=== PATIENT | female | born 1940 | race African-American/Black ===

== ENCOUNTER 2017-10-21 20:38 | Emergency (ER) | payer MEDICARE ==
[~2017-10-21] VITALS: Ht 157.5 cm; Wt 71.3 kg
[2017-10-21] MEDS ORDERED: OMEP20CA10 MT (22:55)
[2017-10-21] MEDS ORDERED: LEVO75TA MT (22:55)
[2017-10-21] MEDS ORDERED: LOSA50TA20 MT (22:55)
[2017-10-21] MEDS ORDERED: CELE100C97 MT (22:55)
[2017-10-21] MEDS ORDERED: VENL-179 MT (22:55)
[2017-10-22 00:19] LABS: CHLORIDE 106 mEq/L (98-107)
[2017-10-22 00:20] LABS: BASOPHILS % 0.5 % (0.0-2.0); EOSINOPHILS % 2.8 % (0.0-5.0); HEMATOCRIT. 40.5 % (36.0-48.0); HEMOGLOBIN. 13.8 g/dL (12.0-16.0); LYMPHOCYTES % 36.6 % (20.0-50.0); MEAN CORPUSCULAR HEMOGLOBIN 30.6 pg (28.0-32.0); MEAN CORPUSCULAR VOLUME 89.6 fL (81.0-99.0); MEAN PLATELET VOLUME 8.9 fl (7.4-10.4); MONOCYTES % 10.7 % (2.0-8.0); NEUTROPHILS % 49.4 % (40.0-76.0); PLATELET 216 x1000/uL (130-400); RED BLOOD CELL COUNT 4.52 mill/uL (4.2-5.4); RED CELL DISTRIBUTION WIDTH 12.8 % (11.6-14.6)
[2017-10-22 01:24] VITALS: BP 135/75
== END 2017-10-22 01:27 | disposition home or self-care (01) ==
LOC: ER 20:38
DX: N93.8 Other specified abnormal uterine and vaginal bleeding (principal); K21.9 Gastro-esophageal reflux disease without esophagitis; I10 Essential (primary) hypertension; E03.8 Other specified hypothyroidism; Z90.49 Acquired absence of other specified parts of digestive tract; Z90.710 Acquired absence of both cervix and uterus; Z79.899 Other long term (current) drug therapy
CPT/HCPCS: 36415; 80053; 85025; 86850; 86900; 99284

== ENCOUNTER 2021-09-25 15:37 | Emergency (ER) | payer MEDICARE ==
[~2021-09-25] VITALS: Ht 162.6 cm; Wt 81.0 kg
[~2021-09-25 15:37] MED LIST: CELE100C97 MT; LEVO75TA MT; LOSA50TA41 MT; OMEP20CA14 MT; VENL-179 MT
[2021-09-25] MEDS ORDERED: LIDOCAINE HCL 1% 20ML VIAL (Pyxis) INJ INFIL ONE (21:45)
[2021-09-25] MEDS ORDERED: TETANUS, DIPHTHERIA, PERTUSSIS VAC/PF 0.5ML (>10YR OLD) IM ONE (21:45)
[2021-09-25] MEDS ORDERED: AMOXICILLIN/POTASSIUM CLAVULANATE 875/125MG TAB PO NR (23:30)
[2021-09-25] MEDS ORDERED: AMOX1TAB16 MT (23:39)
[2021-09-26] VITALS: BP 132/70
== END 2021-09-26 | disposition home or self-care (01) ==
LOC: ER 15:37
DX: S62.634A Displaced fracture of distal phalanx of right ring finger, initial encounter for closed fracture (principal); X58.XXXA Exposure to other specified factors, initial encounter; Y93.89 Activity, other specified; Y92.89 Other specified places as the place of occurrence of the external cause; Y99.8 Other external cause status; K21.9 Gastro-esophageal reflux disease without esophagitis; E78.00 Pure hypercholesterolemia, unspecified; I10 Essential (primary) hypertension; M79.7 Fibromyalgia; Z90.710 Acquired absence of both cervix and uterus; Z90.49 Acquired absence of other specified parts of digestive tract
CPT/HCPCS: 12002; 73140; 90471; 90715; 99283; J3490